=== PATIENT | female | born 1990 | race Caucasian/White ===

== ENCOUNTER 2022-11-29 11:27 | Emergency (ER) | payer OTHER ==
[~2022-11-29] VITALS: Ht 160 cm; Wt 99.8 kg
[2022-11-29 12:33] VITALS: BP 125/70; PULSE 100; RESP 18; TEMP 97.9; O2SAT 98
[2022-11-29] MEDS ORDERED: IBUP-2213 PO (13:49)
[2022-11-29] MEDS ORDERED: PENI500T20 PO (13:49)
== END 2022-11-29 15:06 | disposition home or self-care (01) ==
LOC: MED 11:27
DX: S93.402A Sprain of unspecified ligament of left ankle, initial encounter (principal); K01.1 Impacted teeth; Z88.1 Allergy status to other antibiotic agents; Z79.899 Other long term (current) drug therapy; X58.XXXA Exposure to other specified factors, initial encounter; Y93.89 Activity, other specified; Y92.89 Other specified places as the place of occurrence of the external cause; Y99.8 Other external cause status
CPT/HCPCS: 29515; 73610; 99283